=== PATIENT | female | born 1995 | race Caucasian/White ===

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

== ENCOUNTER 2017-03-11 16:53 | Emergency (ER) | payer MEDICAID ==
[~2017-03-11] VITALS: Ht 154.9 cm; Wt 54.0 kg
[~2017-03-11 16:53] MED LIST changes: -FOLI5CAP PO; -MACR100C2 PO
[2017-03-11 16:54] VITALS: BP 124/72; PULSE 100; RESP 18; TEMP 98.3; O2SAT 100
[2017-03-11] MEDS ORDERED: NAPR500T PO (18:24)
--- NOTE | 2017-03-11 18:27 | PD ---
HPI Chief Complaint: Pain: Acute or Chronic Time Seen by Provider: 18:25 Travel History International Travel<30 days: No Contact w/Intl Traveler<30days: No Traveled to known affect area: No History of Present Illness HPI 21-year-old female presents to the emergency department for evaluation of right chest wall pain underneath her right breast. Patient states this is been intermittent for the past week. Denies any injury or trauma. States the pain is brought on by movement and palpation. Denies any lightheadedness, dizziness , shortness of breath, difficulty breathing, cough or cold symptoms, nausea, diaphoresis. Denies , last menstrual period 3 weeks ago. States that she thought she felt a lump in her right breast but is unsure. Denies any erythema, warmth, nipple discharge or drainage. Denies any family history of breast cancer. No other complaints. PFSH Past Medical History Asthma: No Blood Disorders: No Anxiety: No Depression: No Heart Rhythm Problems: No Cancer: No Cardiovascular Problems: No High Cholesterol: No Chemotherapy: No Chest Pain: No Congestive Heart Failure: No COPD: No Diabetes: No Diminished Hearing: No Endocrine: No Genitourinary: No Hypertension: No Musculoskeletal: No Neurologic: No Psychiatric: No Reproductive: No Respiratory: No Immunizations Current: No Radiation Therapy: No Seizures: Yes (first seizure 05/04/16) Sleep Apnea: No Thyroid Disease: No ?: Unknown : 1 : 1 Past Surgical History Other Surgery: No Social History Alcohol Use: No Tobacco Use: No Substance Use: Yes (marijuana, occasionally) Allergies-Medications (Allergen,Severity, Reaction): Coded Allergies: No Known Allergies (Unverified , 03/11/17) Reported Meds & Prescriptions Reported Meds & Active Scripts Active Naproxen 500 Mg Tab 500 Mg PO BID 7 Days Keppra (Levetiracetam) 500 Mg Tab 500 Mg PO BID Review of Systems Except as stated in HPI: all other systems reviewed are Neg Physical Exam Narrative GENERAL: Well-nourished and well-developed pleasant patient in no acute distress who is nontoxic appearing. SKIN: Warm and dry. HEAD: Normocephalic and atraumatic. EYES: No injection, drainage, or hyphema noted. PERRLA. EOMI. ENT: No nasal drainage noted. Oropharynx is clear. NECK: Supple and the trachea is midline. CARDIOVASCULAR: Regular rate and rhythm. RESPIRATORY: Breath sounds are equal bilaterally with no accessory muscle use, wheezing, rhonchi, or crackles. CHEST: Tenderness to palpation of lateral right chest wall and underneath right breast. No breast tenderness to palpation. No lumps, masses, nipple discharge. GASTROINTESTINAL: Abdomen is soft, non-tender, and nondistended. MUSCULOSKELETAL: No obvious deformities, swelling, cyanosis, or ecchymosis is present throughout the upper and lower extremities. Patient has full range of motion without any signs of neurovascular compromise. NEUROLOGICAL: Awake, alert, and oriented. Normal speech and gait. Cranial nerves are grossly intact. Data Data Last Documented VS Vital Signs Date Time Temp Pulse Resp B/P Pulse Ox O2 Delivery O2 Flow Rate FiO2 03/11/17 16:54 98.3 100 18 124/72 100 Room Air MDM Medical Decision Making Medical Screen Exam Complete: Yes Emergency Medical Condition: Yes Differential Diagnosis Chest wall pain versus muscle strain versus fibrocystic breast tissue versus pleuritic pain Narrative Course 21-year-old female presents to the emergency department for evaluation of right chest wall pain intermittently for one week brought on with movement. Patient is afebrile, vital signs are stable. This is musculoskeletal chest wall pain. There is really no involvement of the breast tissue, all of her pain is to the chest wall below the breast and lateral to the breast. This is a young healthy 21-year-old with no medical conditions and no family history of sudden cardiac . I don't see any indication for imaging or further testing. She'll be prescribed NSAIDs for her symptoms. Patient verbalizes understanding and is in agreement with treatment plan. I discussed the case with my attending physician Dr. Parrish who is aware of the patients history, physical examination findings, and treatment plan. Diagnosis Primary Impression: Right-sided chest wall pain Referrals: Primary Care Physician Patient Instructions: Chest Wall Pain (ED), General Instructions Additional Instructions: Take medication as prescribed with food and a full glass of water. Follow-up with your Primary Care Physician. Return to the ED for any acute worsening of symptoms. Med/Other Pt SpecificInfo: Prescription(s) given Scripts Naproxen 500 Mg Rys244 Mg PO BID 7 Days Ref 0 Prov:Sylvain Parrish MD 03/11/17 Disposition: 01 DISCHARGE HOME Condition: Stable Shweta Haywood Mar 11, 2017 18:27
== END 2017-03-11 19:11 | disposition home or self-care (01) ==
LOC: NEPD 16:53
DX: R07.89 Other chest pain (principal); Z86.69 Personal history of other diseases of the nervous system and sense organs
CPT/HCPCS: 99283

== ENCOUNTER 2017-04-19 13:00 | Emergency (ER) | payer MEDICAID ==
[~2017-04-19] VITALS: Ht 154.9 cm; Wt 55.0 kg
[~2017-04-19 13:00] MED LIST changes: +NAPR500T PO
[2017-04-19 13:06] VITALS: PULSE 60; RESP 18; TEMP 97.9; O2SAT 98
[2017-04-19] MEDS ORDERED: SODIUM CHLOR 0.9% 1000 ML INJ 1,000 ML IV SCH (13:06)
[2017-04-19 13:13] VITALS: BP 130/68; PULSE 70; RESP 18; TEMP 97.9; O2SAT 98
[2017-04-19] MEDS ORDERED: ACETAMINOPHEN 325 MG TAB PO ONE (13:15)
[2017-04-19] MEDS ORDERED: LORazepam 2 MG/ML VIAL IV PUSH ONE (13:15)
[2017-04-19] MEDS ORDERED: ONDANSETRON HCL 4 MG/2 ML VIAL ONE (13:42)
[2017-04-19] MEDS ORDERED: ONDANSETRON HCL 4 MG/2 ML VIAL IV PUSH ONE (13:45)
[2017-04-19 13:49] LABS: AUTOMATED NEUTROPHIL # 4.3 TH/MM3 (1.8-7.7); BASOPHIL % 0.5 % (0.0-2.0); EOSINOPHIL % 0.5 % (0.0-4.0); HEMATOCRIT 34.1 % (35.0-46.0); HEMO FLAGS DIFF FINAL; LYMPH % 17.4 % (9.0-44.0); MEAN CELL VOLUME 69.6 FL (80.0-100.0); MEAN CORPUSCULAR HEMOGLOBIN 22.2 PG (27.0-34.0); MEAN CORPUSCULAR HGB CONC 31.9 % (32.0-36.0); MONO % 4.9 % (0.0-8.0); NEUT % 76.7 % (16.0-70.0); PLATELET COUNT 272 TH/MM3 (150-450); RED CELL DISTRIBUTION WIDTH 17.9 % (11.6-17.2); WHITE BLOOD COUNT 5.6 TH/MM3 (4.0-11.0)
[2017-04-19 14:06] LABS: BICARBONATE 23.7 MEQ/L (21.0-32.0); MAGNESIUM 2.3 MG/DL (1.5-2.5); POTASSIUM 4.5 MEQ/L (3.5-5.1)
--- NOTE | 2017-04-19 14:16 | RADRPT ---
EXAM DATE/TIME: 04/19/2017 14:00 [facility] COMPARISON: CT BRAIN W/O CONTRAST, May 04, 2016, 8:47. INDICATIONS : Cephalgia. RADIATION DOSE: 32.34 CTDIvol (mGy) MEDICAL HISTORY : Seizures. SURGICAL HISTORY : None. ENCOUNTER: Initial ACUITY: 1 day PAIN SCALE: 9/10 LOCATION: Bilateral cranial TECHNIQUE: Multiple contiguous axial images were obtained of the head. Using automated exposure control and adj ustment of the mA and/or kV according to patient size, radiation dose was kept as low as reasonably a chievable to obtain optimal diagnostic quality images. FINDINGS: CEREBRUM: The ventricles are normal. No evidence of midline shift, mass lesion, hemorrhage or acute infarction . No extra-axial fluid collections are seen. POSTERIOR FOSSA: The cerebellum and brainstem are intact. The 4th ventricle is midline. The cerebellopontine angle i s unremarkable. EXTRACRANIAL: Visualized sinuses are clear. SKULL: The calvaria is intact. No evidence of skull fracture. CONCLUSION: Negative noncontrast head CT. Kev De Leon MD on April 19, 2017 at 14:13 Board Certified Radiologist. This report was verified electronically.
--- NOTE | 2017-04-19 14:17 | PD ---
HPI Chief Complaint: Seizure Time Seen by Provider: 14:14 Travel History International Travel<30 days: No Contact w/Intl Traveler<30days: No Traveled to known affect area: No History of Present Illness HPI 21-year-old female that presents to the ED for evaluation of witnessed seizure. Patient apparently was on her way to work and she had a seizure where she lost consciousness on a car. Patient did not hit her head. Seizure lasted about a minute and she came back to with both lasted about 10 minutes of confusion. After that patient went back to normal except complaining of a severe headache. The patient her headache is 8 out of 10. She also has vomited once today. She denies any allergies to medication. No chest pain. No falls. No urinary or bowel movement issues. No fevers chills or sweats. No blurry vision or double vision. Per patient the headache is severe and throbbing. She has not taken anything for this. Patient does have a known history of seizures diagnosed in this hospital just 2016. Patient was put on Keppra but per patient she's been noncompliant because the Keppra makes her feel "like she is having postictal episodes ". She has no neurologist. She has no follow-up. No other medical problems reported. Denies any drugs or alcohol. PFSH Past Medical History Anemia: Yes Asthma: No Blood Disorders: No Anxiety: No Depression: No Heart Rhythm Problems: No Cancer: No Cardiovascular Problems: No High Cholesterol: No Chemotherapy: No Chest Pain: No Congestive Heart Failure: No COPD: No Diabetes: No Diminished Hearing: No Endocrine: No Genitourinary: No Hypertension: No Musculoskeletal: No Neurologic: No Psychiatric: No Reproductive: No Respiratory: No Immunizations Current: No Radiation Therapy: No Seizures: Yes Sleep Apnea: No Thyroid Disease: No Tetanus Vaccination: < 5 Years Influenza Vaccination: Yes ?: Not LMP: 04/13/17 : 1 : 1 Past Surgical History Surgical History: No Previous Surgery Other Surgery: No Social History Alcohol Use: No (OCCASIONALLY ) Tobacco Use: No Substance Use: Yes (marijuana OFTEN ) Allergies-Medications (Allergen,Severity, Reaction): Coded Allergies: No Known Allergies (Unverified , 03/11/17) Reported Meds & Prescriptions Reported Meds & Active Scripts Active Keppra (Levetiracetam) 250 Mg Tab 500 Mg PO BID 30 Days Naproxen 500 Mg Tab 500 Mg PO BID 7 Days Keppra (Levetiracetam) 500 Mg Tab 500 Mg PO BID Review of Systems Except as stated in HPI: all other systems reviewed are Neg Physical Exam Narrative GENERAL: SKIN: Warm and dry. HEAD: Atraumatic. Normocephalic. EYES: Pupils equal and round 4 mm reactive to light and accommodation. No scleral icterus. No injection or drainage. ENT: No nasal bleeding or discharge. Mucous membranes pink and moist. Tongue is midline. No uvula deviation. NECK: Trachea midline. No JVD. CARDIOVASCULAR: Regular rate and rhythm. No murmurs, S3, S4. RESPIRATORY: No accessory muscle use. Clear to auscultation. Breath sounds equal bilaterally. GASTROINTESTINAL: Abdomen soft, non-tender, nondistended. Hepatic and splenic margins not palpable. MUSCULOSKELETAL: Extremities without clubbing, cyanosis, or edema. No obvious deformities. Full range of motion of the upper and lower extremities bilaterally. 2+ pulses bilaterally. NEUROLOGICAL: Awake and alert. No obvious cranial nerve deficits. Motor grossly within normal limits. Five out of 5 muscle strength in the arms and legs. Normal speech. PSYCHIATRIC: Appropriate mood and affect; insight and judgment normal. Data Data Last Documented VS Vital Signs Date Time Temp Pulse Resp B/P Pulse Ox O2 Delivery O2 Flow Rate FiO2 04/19/17 14:36 18 04/19/17 13:13 97.9 70 130/68 98 Room Air Orders Complete Blood Count With Diff (04/19/17 13:06) Basic Metabolic Panel (Bmp) (04/19/17 13:06) Urinalysis - C+S If Indicated (04/19/17 13:06) Magnesium (Mg) (04/19/17 13:06) Thyroid Stimulating Hormone (04/19/17 13:06) Ct Brain W/O Iv Contrast(Rout) (04/19/17 13:06) Iv Access Insert/Monitor (04/19/17 13:06) Ecg Monitoring (04/19/17 13:06) Oximetry (04/19/17 13:06) Acetaminophen (Tylenol) (04/19/17 13:15) Lorazepam Inj (Ativan Inj) (04/19/17 13:15) Sodium Chlor 0.9% 1000 Ml Inj (Ns 1000 M (04/19/17 13:06) Ondansetron Inj (Zofran Inj) (04/19/17 13:45) Ondansetron Inj (Zofran Inj) (04/19/17 13:42) Ed Urine Pregnancytest Poc (04/19/17 14:27) Levetiracetam Inj (Keppra Inj) (04/19/17 15:15) Mandatory Outpatient Referral (04/19/17 15:13) Labs Laboratory Tests Test 04/19/17 13:20 White Blood Count 5.6 TH/MM3 Red Blood Count 4.90 MIL/MM3 Hemoglobin 10.9 GM/DL Hematocrit 34.1 % Mean Corpuscular Volume 69.6 FL Mean Corpuscular Hemoglobin 22.2 PG Mean Corpuscular Hemoglobin 31.9 % Concent Red Cell Distribution Width 17.9 % Platelet Count 272 TH/MM3 Mean Platelet Volume 8.6 FL Neutrophils (%) (Auto) 76.7 % Lymphocytes (%) (Auto) 17.4 % Monocytes (%) (Auto) 4.9 % Eosinophils (%) (Auto) 0.5 % Basophils (%) (Auto) 0.5 % Neutrophils # (Auto) 4.3 TH/MM3 Lymphocytes # (Auto) 1.0 TH/MM3 Monocytes # (Auto) 0.3 TH/MM3 Eosinophils # (Auto) 0.0 TH/MM3 Basophils # (Auto) 0.0 TH/MM3 CBC Comment DIFF FINAL Differential Comment Sodium Level 141 MEQ/L Potassium Level 4.5 MEQ/L Chloride Level 107 MEQ/L Carbon Dioxide Level 23.7 MEQ/L Anion Gap 10 MEQ/L Blood Urea Nitrogen 11 MG/DL Creatinine 0.79 MG/DL Estimat Glomerular Filtration 94 ML/MIN Rate Random Glucose 87 MG/DL Calcium Level 9.8 MG/DL Magnesium Level 2.3 MG/DL Thyroid Stimulating Hormone 1.660 uIU/ML 3rd Gen [facility] Medical Decision Making Medical Screen Exam Complete: Yes Emergency Medical Condition: Yes Medical Record Reviewed: Yes Interpretation(s) Last Impressions Head CT 04/19/17 1306 Signed Impressions: Service Date/Time: Wednesday, April 19, 2017 14:00 - CONCLUSION: Negative noncontrast head CT. Kev De Leon MD CBC & BMP Diagram 04/19/17 13:20 TSH WNL Differential Diagnosis Seizure versus chronic seizures versus noncompliance versus headache versus cephalgia versus ICH Narrative Course 21-year-old female that presents to the ED for evaluation of seizure. Patient was properly examined and was found to have signs and symptoms consistent appears to be a seizure. Patient appears to be back to normal. She does complain of a severe headache. Denies any head injury. Labs and imaging ordered. Patient was given IV fluids and antiemetics as well as Ativan. Labs and imaging showed no sign of acute disease. Patient was reassured. The family the patient's having seizures secondary to noncompliance. This time patient will be placed back on Keppra. Patient was given a loading dose here. Patient will be sent home prescription for this. She was instructed that she needs to take this medication as otherwise she will continue to have seizures. She understands that she needs to follow with her neurologist. She was given information for neurologist on-call. See ED worsening symptoms. Follow with PCP. Diagnosis Primary Impression: Seizure Referrals: Oscar Smalls MD Patient Instructions: General Instructions, Narcotic given in the ED Additional Instructions: Take your seizure medication as prescribed. Follow with neurologist. See ED worsening symptoms. Med/Other Pt SpecificInfo: Prescription(s) given Scripts Levetiracetam (Keppra)250 Mg Nas245 Mg PO BID 30 Days Ref 1 Prov:Dar Nogueira MD 04/19/17 Disposition: 01 DISCHARGE HOME Condition: Stable Ji Albrecht April 19, 2017 14:17
[2017-04-19] MEDS ORDERED: LEVE250 PO (15:12)
[2017-04-19] MEDS ORDERED: levETIRAcetam INJ 500 MG in SODIUM CHLORIDE 0.9% INJ 100 ML IV ONE (15:15)
[2017-04-19 16:19] VITALS: BP 121/61; PULSE 74; RESP 18; TEMP 97.9; O2SAT 98
== END 2017-04-19 16:20 | disposition home or self-care (01) ==
LOC: NEPE 13:00
DX: R56.9 Unspecified convulsions (principal); R51 Headache; D64.9 Anemia, unspecified; F12.90 Cannabis use, unspecified, uncomplicated; Z91.14 Patient's other noncompliance with medication regimen
CPT/HCPCS: 70450; 80048; 83735; 84443; 85025; 96361; 96374; 96375; 99285; J1953; J2060; J2405; J7030

== ENCOUNTER 2017-05-26 09:19 | Emergency (ER) | payer MEDICAID ==
[~2017-05-26] VITALS: Ht 165.1 cm; Wt 55.5 kg
[~2017-05-26 09:19] MED LIST changes: +LEVE250 PO
[2017-05-26 09:20] VITALS: BP 146/81; PULSE 67; RESP 22; TEMP 97.7; O2SAT 98
[2017-05-26 09:44] VITALS: O2SAT 96
[2017-05-26] MEDS ORDERED: SODIUM CHLORIDE 0.9% FLUSH 10 ML FLUSH IVF PRN (09:45)
[2017-05-26] MEDS ORDERED: ONDANSETRON HCL 4 MG/2 ML VIAL IV PUSH ONE (09:45)
[2017-05-26] MEDS ORDERED: MORPHINE SULFATE 4 MG/ML INJ IV PUSH ONE (09:45)
[2017-05-26] MEDS ORDERED: SODIUM CHLOR 0.9% 1000 ML INJ 1,000 ML IV ONE (09:45)
--- NOTE | 2017-05-26 09:45 | PD ---
HPI Chief Complaint: Seizure Time Seen by Provider: 09:29 Travel History International Travel<30 days: No Contact w/Intl Traveler<30days: No Traveled to known affect area: No History of Present Illness HPI The patient is a 21-year-old female who presents to the emergency department for seizure. The patient notes she has had seizures for the last 2 years, was prescribed Her and takes 500 mg twice a day. The patient states her last seizure prior to today was 3 weeks ago. The patient states she was sleeping when she had a seizure at 4 AM, had another seizure at 6:30 AM and then developed a headache. The headache is located in the frontal aspect of the head behind the eyes, associated mild photophobia, nausea, and she does note she bit the right side of her tongue. She denies any urinary incontinence. She does complain of a moderate to severe headache, denies any trauma during her seizure, the seizure was witnessed by a family member. She denies any focal deficits. The patient has not followed up with neurology in the last 2 years. The patient denies any fever, chills, or sweats. PFSH Past Medical History Anemia: Yes Asthma: No Blood Disorders: No Anxiety: No Depression: No Heart Rhythm Problems: No Cancer: No Cardiovascular Problems: No High Cholesterol: No Chemotherapy: No Chest Pain: No Congestive Heart Failure: No COPD: No Diabetes: No Diminished Hearing: No Endocrine: No Genitourinary: No Hypertension: No Musculoskeletal: No Neurologic: No Psychiatric: No Reproductive: No Respiratory: No Immunizations Current: No Radiation Therapy: No Seizures: Yes Sleep Apnea: No Thyroid Disease: No : 1 : 1 Past Surgical History Other Surgery: No Social History Alcohol Use: No (OCCASIONALLY ) Tobacco Use: No Substance Use: Yes (marijuana OFTEN ) Allergies-Medications (Allergen,Severity, Reaction): Coded Allergies: No Known Allergies (Unverified , 05/26/17) Reported Meds & Prescriptions Reported Meds & Active Scripts Active Keppra (Levetiracetam) 250 Mg Tab 500 Mg PO BID 30 Days Naproxen 500 Mg Tab 500 Mg PO BID 7 Days Keppra (Levetiracetam) 500 Mg Tab 500 Mg PO BID Review of Systems Except as stated in HPI: all other systems reviewed are Neg General / Constitutional: No: Fever Eyes: Positive: Photophobia, No: Blurred Vision HENT: Positive: Headaches, No: Neck Pain Cardiovascular: No: Chest Pain or Discomfort Respiratory: No: Shortness of Breath Gastrointestinal: Positive: Nausea, No: Vomiting, Abdominal Pain Genitourinary: No: Incontinence Musculoskeletal: No: Weakness Neurologic: Positive: Headache, Seizures, No: Change in Mentation, Paresthesia , Sensory Disturbance Physical Exam Narrative GENERAL: Awake, alert, 21-year-old female who appears her stated age and is in no acute respiratory distress. SKIN: Focused skin assessment warm/dry. HEAD: Atraumatic. Normocephalic. EYES: Pupils equal and round. Pupils are 4 mm bilateral and reactive. EOMs are intact. Patient is a was see fingers at a distance of 2 feet without difficulty. ENT: No nasal bleeding or discharge. Mucous membranes pink and moist. Mild trauma to the right lateral tongue. NECK: Trachea midline. No JVD. CARDIOVASCULAR: Regular rate and rhythm. No murmur appreciated. RESPIRATORY: No accessory muscle use. Clear to auscultation. Breath sounds equal bilaterally. No Abdomen: Soft, nontender, no rebound tenderness.. MUSCULOSKELETAL: No obvious deformities. No clubbing. No cyanosis. No edema. NEUROLOGICAL: Awake and alert. No obvious cranial nerve deficits. Motor grossly within normal limits. Normal speech. Nonfocal. Oriented 4. PSYCHIATRIC: Appropriate mood and affect; insight and judgment normal. Data Data Last Documented VS Vital Signs Date Time Temp Pulse Resp B/P Pulse Ox O2 Delivery O2 Flow Rate FiO2 05/26/17 09:44 96 Room Air 05/26/17 09:20 97.7 67 22 146/81 Orders Electrocardiogram (05/26/17 ) Complete Blood Count With Diff (05/26/17 09:34) Ct Brain W/O Iv Contrast(Rout) (05/26/17 ) Blood Glucose (05/26/17 09:34) Ecg Monitoring (05/26/17 09:34) Iv Access Insert/Monitor (05/26/17 09:34) Oximetry (05/26/17 09:34) Comprehensive Metabolic Panel (05/26/17 09:34) Sodium Chloride 0.9% Flush (Ns Flush) (05/26/17 09:45) Urinalysis - C+S If Indicated (05/26/17 09:34) Ed Urine Pregnancytest Poc (05/26/17 09:34) Sodium Chlor 0.9% 1000 Ml Inj (Ns 1000 M (05/26/17 09:45) Morphine Inj (Morphine Inj) (05/26/17 09:45) Ondansetron Inj (Zofran Inj) (05/26/17 09:45) Labs Laboratory Tests Test 05/26/17 09:44 White Blood Count 11.2 TH/MM3 Red Blood Count 5.13 MIL/MM3 Hemoglobin 10.7 GM/DL Hematocrit 35.8 % Mean Corpuscular Volume 69.9 FL Mean Corpuscular Hemoglobin 21.0 PG Mean Corpuscular Hemoglobin 30.0 % Concent Red Cell Distribution Width 17.1 % Platelet Count 252 TH/MM3 Mean Platelet Volume 8.7 FL Neutrophils (%) (Auto) 89.2 % Lymphocytes (%) (Auto) 7.3 % Monocytes (%) (Auto) 2.9 % Eosinophils (%) (Auto) 0.1 % Basophils (%) (Auto) 0.5 % Neutrophils # (Auto) 10.0 TH/MM3 Lymphocytes # (Auto) 0.8 TH/MM3 Monocytes # (Auto) 0.3 TH/MM3 Eosinophils # (Auto) 0.0 TH/MM3 Basophils # (Auto) 0.1 TH/MM3 CBC Comment DIFF FINAL Differential Comment Sodium Level 137 MEQ/L Potassium Level 4.1 MEQ/L Chloride Level 104 MEQ/L Carbon Dioxide Level 23.8 MEQ/L Anion Gap 9 MEQ/L Blood Urea Nitrogen 7 MG/DL Creatinine 0.77 MG/DL Estimat Glomerular Filtration 97 ML/MIN Rate Random Glucose 106 MG/DL Calcium Level 9.4 MG/DL Total Bilirubin 0.4 MG/DL Aspartate Amino Transf 30 U/L (AST/SGOT) Alanine Aminotransferase 24 U/L (ALT/SGPT) Alkaline Phosphatase 89 U/L Total Protein 8.0 GM/DL Albumin 4.2 GM/DL [facility] Medical Decision Making Medical Screen Exam Complete: Yes Emergency Medical Condition: Yes Medical Record Reviewed: Yes Interpretation(s) EKG reveals sinus rhythm with sinus arrhythmia. No significant ST elevations or depressions noted. Last Impressions Head CT 05/26/17 0000 Signed Impressions: Service Date/Time: Friday, May 26, 2017 10:14 - CONCLUSION: Normal examination for a patient of this age. No significant change has occurred. Praneeth Purcell MD Laboratory Tests Test 05/26/17 09:44 White Blood Count 11.2 TH/MM3 Red Blood Count 5.13 MIL/MM3 Hemoglobin 10.7 GM/DL Hematocrit 35.8 % Mean Corpuscular Volume 69.9 FL Mean Corpuscular Hemoglobin 21.0 PG Mean Corpuscular Hemoglobin 30.0 % Concent Red Cell Distribution Width 17.1 % Platelet Count 252 TH/MM3 Mean Platelet Volume 8.7 FL Neutrophils (%) (Auto) 89.2 % Lymphocytes (%) (Auto) 7.3 % Monocytes (%) (Auto) 2.9 % Eosinophils (%) (Auto) 0.1 % Basophils (%) (Auto) 0.5 % Neutrophils # (Auto) 10.0 TH/MM3 Lymphocytes # (Auto) 0.8 TH/MM3 Monocytes # (Auto) 0.3 TH/MM3 Eosinophils # (Auto) 0.0 TH/MM3 Basophils # (Auto) 0.1 TH/MM3 CBC Comment DIFF FINAL Differential Comment Sodium Level 137 MEQ/L Potassium Level 4.1 MEQ/L Chloride Level 104 MEQ/L Carbon Dioxide Level 23.8 MEQ/L Anion Gap 9 MEQ/L Blood Urea Nitrogen 7 MG/DL Creatinine 0.77 MG/DL Estimat Glomerular Filtration 97 ML/MIN Rate Random Glucose 106 MG/DL Calcium Level 9.4 MG/DL Total Bilirubin 0.4 MG/DL Aspartate Amino Transf 30 U/L (AST/SGOT) Alanine Aminotransferase 24 U/L (ALT/SGPT) Alkaline Phosphatase 89 U/L Total Protein 8.0 GM/DL Albumin 4.2 GM/DL Differential Diagnosis Differential diagnosis includes subtherapeutic Keppra level, breakthrough seizure, hyponatremia, hypocalcemia, subarachnoid hemorrhage, intracranial hemorrhage, seizure disorder. Narrative Course IV was established, labs are drawn and sent, and the patient was placed on cardiac telemetry monitoring and continuous pulse oximetry monitoring. EKG was ordered and interpreted. Stat CT the brain was obtained. 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 I reviewed the patient's EMR, she was hospitalized in 2016 for new onset seizure, had an EEG that was read by Dr. Smalls and an MRI the brain that was performed. Bedside UA test was negative. CT the brain is unremarkable. Laboratory evaluation is unremarkable. The patient was reevaluated at 10:45 AM, her headache had improved, was still at a 3/10. Therefore, the patient was administered Toradol. Patient was administer A 500 mg intravenously. The patient states previously she was elevated A 750 g twice a day, however, and had to be reduced because it was too sedating. Therefore, patient is advised to continue the Keppra 500 twice a day and follow-up with neurology. Diagnosis Primary Impression: Seizure Additional Impression: Cephalgia Qualified Code: R51 - Acute nonintractable headache, unspecified headache type Patient Instructions: General Instructions Additional Instructions: Medications as directed. Follow-up with your primary physician. Return if symptoms worsen or progress. Please provide a patient a copy of her labs and CT results at discharge. Med/Other Pt SpecificInfo: No Change to Meds Disposition: 01 DISCHARGE HOME Condition: Stable Jacinto Holt MD May 26, 2017 09:45
[2017-05-26 10:18] LABS: BASOPHIL # 0.1 TH/MM3 (0-0.2); BASOPHIL % 0.5 % (0.0-2.0); EOSINOPHIL % 0.1 % (0.0-4.0); HEMATOCRIT 35.8 % (35.0-46.0); HEMO FLAGS DIFF FINAL; LYMPH % 7.3 % (9.0-44.0); LYMPHOCYTE # 0.8 TH/MM3 (1.0-4.8); MEAN CELL VOLUME 69.9 FL (80.0-100.0); MONO % 2.9 % (0.0-8.0); NEUT % 89.2 % (16.0-70.0); PLATELET COUNT 252 TH/MM3 (150-450); RED BLOOD COUNT 5.13 MIL/MM3 (4.00-5.30); RED CELL DISTRIBUTION WIDTH 17.1 % (11.6-17.2); WHITE BLOOD COUNT 11.2 TH/MM3 (4.0-11.0)
--- NOTE | 2017-05-26 10:34 | RADRPT ---
EXAM DATE/TIME: 05/26/2017 10:14 [facility] COMPARISON: CT BRAIN W/O CONTRAST, April 19, 2017, 14:00. INDICATIONS : Possible seizure today. RADIATION DOSE: 39.54 CTDIvol (mGy) MEDICAL HISTORY : Seizures. SURGICAL HISTORY : None. ENCOUNTER: Initial ACUITY: 1 day PAIN SCALE: 5/10 LOCATION: Bilateral head TECHNIQUE: Multiple contiguous axial images were obtained of the head. Using automated exposure control and adj ustment of the mA and/or kV according to patient size, radiation dose was kept as low as reasonably a chievable to obtain optimal diagnostic quality images. DICOM format image data is available electro nically for review and comparison. FINDINGS: CEREBRUM: The ventricles are normal for age. No evidence of midline shift, mass lesion, hemorrhage or acute in farction. No extra-axial fluid collections are seen. POSTERIOR FOSSA: The cerebellum and brainstem are intact. The 4th ventricle is midline. The cerebellopontine angle i s unremarkable. EXTRACRANIAL: The visualized portion of the orbits is intact. SKULL: The calvaria is intact. No evidence of skull fracture. CONCLUSION: Normal examination for a patient of this age. No significant change has occurred. Praneeth Purcell MD on May 26, 2017 at 10:28 Board Certified Radiologist. This report was verified electronically.
[2017-05-26 10:35] LABS: ALKALINE PHOSPHATASE 89 U/L (45-117); TOTAL BILIRUBIN ADULT 0.4 MG/DL (0.2-1.0)
[2017-05-26 10:36] LABS: ALT (GPT) 24 U/L (9-42); ANION GAP 9 MEQ/L (5-15); AST (GOT) 30 U/L (16-38); BICARBONATE 23.8 MEQ/L (21.0-32.0); BLOOD UREA NITROGEN 7 MG/DL (7-18); CHLORIDE 104 MEQ/L (98-107); GLOMERULAR FILTRATION RATE 97 ML/MIN (>89); SODIUM (NA) 137 MEQ/L (136-145)
[2017-05-26 10:37] LABS: POTASSIUM 4.1 MEQ/L (3.5-5.1)
[2017-05-26] MEDS ORDERED: KETOROLAC TROMETHAMINE 30 MG/ML (IVP) VIAL IV PUSH ONE (11:00)
[2017-05-26] MEDS ORDERED: levETIRAcetam INJ 500 MG in SODIUM CHLORIDE 0.9% INJ 100 ML IV ONE (11:00)
[2017-05-26 11:23] LABS: BACTERIA, URINE RARE /hpf; BLOOD, URINE NEG (NEG); COMMENT (UR) CULT NOT INDICATED; CULTURE IF INDICATED CULT NOT INDICATED; GLUCOSE,URINE NEG (NEG); KETONE, URINE TRACE mg/dL (NEG); MUCUS URINE FEW /lpf (OCC); NITRITE,URINE NEG (NEG); PH, URINE 7.5 (5.0-8.5); SQUAMOUS EPITHELIAL CELL URINE 13 /hpf (0-5); TRANSITIONAL EPI CELLS, URINE 1 /hpf; URINE COLOR LIGHT-YELLOW (YELLW/STRAW)
[2017-05-26 12:29] VITALS: BP 110/66
--- NOTE | 2017-05-26 15:18 | EKG ---
Date Performed: 05/26/2017 Time Performed: 21:55:45 PTAGE: 21 years EKG: Sinus rhythm WITH MARKED SINUS ARRHYTHMIA BORDERLINE ECG PREVIOUS TRACING : 05/04/2016 07/22/18 DOCTOR: Junior Coe Interpretating Date/Time 05/26/2017 15:17:24
== END 2017-05-26 12:30 | disposition home or self-care (01) ==
LOC: NEPE 09:19
DX: R51 Headache (principal); D64.9 Anemia, unspecified; F12.10 Cannabis abuse, uncomplicated
CPT/HCPCS: 70450; 80053; 81001; 84703; 85025; 93005; 96361; 96365; 96375; 99285; J1885; J1953; J2270; J2405; J7030

== ENCOUNTER 2017-06-24 16:01 | Emergency (ER) | payer MEDICAID ==
[2017-06-24 16:10] VITALS: BP 134/87; PULSE 18; PULSE 78; RESP 18; TEMP 98.1; O2SAT 100
[2017-06-24] MEDS ORDERED: LIDOCAINE 1%/EPINEPHrine 1:100,000 SOLN 20 ML VIAL INFIL ONE (16:45)
[2017-06-24] MEDS ORDERED: CEPH500C PO (17:04)
--- NOTE | 2017-06-24 17:12 | PD ---
HPI Chief Complaint: Laceration/Skin Injury Time Seen by Provider: 16:20 Travel History International Travel<30 days: No Contact w/Intl Traveler<30days: No Traveled to known affect area: No History of Present Illness HPI 21-year-old M[place] female presents the emergency department with laceration to the lateral left wrist. Patient states she was cooking, when her cat was getting onto the counter she went to move the cat and the cat knocked a sharp knife which he tried to catch causing a laceration to the volar surface of the left wrist. Patient called the anal she brought her in and applied a pressure dressing with control the bleeding. She denies any numbness, tingling , or loss of function in the left hand. She had her last tetanus 4 years ago. She does have a history of seizure disorder for which she takes Keppra. She has minimal pain. She has no known drug allergies. PFSH Past Medical History Anemia: Yes Asthma: No Blood Disorders: No Anxiety: No Depression: No Heart Rhythm Problems: No Cancer: No Cardiovascular Problems: No High Cholesterol: No Chemotherapy: No Chest Pain: No Congestive Heart Failure: No COPD: No Diabetes: No Diminished Hearing: No Endocrine: No Genitourinary: No Hypertension: No Musculoskeletal: No Neurologic: No Psychiatric: No Reproductive: No Respiratory: No Immunizations Current: No Radiation Therapy: No Seizures: Yes Sleep Apnea: No Thyroid Disease: No : 1 : 1 Past Surgical History Other Surgery: No Social History Alcohol Use: Yes (OCCASIONALLY ) Tobacco Use: No Substance Use: Yes (marijuana OFTEN ) Allergies-Medications (Allergen,Severity, Reaction): Coded Allergies: No Known Allergies (Unverified , 05/26/17) Reported Meds & Prescriptions Reported Meds & Active Scripts Active Keppra (Levetiracetam) 500 Mg Tab 500 Mg PO BID Review of Systems Except as stated in HPI: all other systems reviewed are Neg General / Constitutional: No: Fever Eyes: No: Visual changes HENT: No: Headaches Cardiovascular: No: Chest Pain or Discomfort Respiratory: No: Shortness of Breath Gastrointestinal: No: Abdominal Pain Genitourinary: No: Dysuria Musculoskeletal: No: Pain Skin: No Rash Neurologic: No: Weakness Psychiatric: No: Depression Endocrine: No: Polydipsia Hematologic/Lymphatic: No: Easy Bruising Physical Exam Narrative GENERAL: Patient appears in no acute distress. SKIN: Warm and dry. Normal color. Normal turgor. Patient has a 3 cm linear laceration across the volar surface of the left wrist. It is full-thickness but does not involve the tendons, ligaments, nerves, or blood vessels of the deep tissue. HEAD: Atraumatic. Normocephalic. EYES: Pupils equal and round. No scleral icterus. No injection or drainage. ENT: No nasal bleeding or discharge. Mucous membranes pink and moist. Pharynx is clear. Airway is patent. NECK: Trachea midline. Supple. CARDIOVASCULAR: Regular rate and rhythm. RESPIRATORY: No accessory muscle use. Clear to auscultation. Breath sounds equal bilaterally. MUSCULOSKELETAL: Extremities without clubbing, cyanosis, or edema. No obvious deformities. Full strength and range of motion and sensation is noted. Normal child health associate strength of the left hand. Neurovascular exam is unremarkable. NEUROLOGICAL: Awake and alert. No obvious cranial nerve deficits. Motor grossly within normal limits. Five out of 5 muscle strength in the arms and legs. Normal speech. PSYCHIATRIC: Appropriate mood and affect; insight and judgment normal. Data Data Last Documented VS Vital Signs Date Time Temp Pulse Resp B/P Pulse Ox O2 Delivery O2 Flow Rate FiO2 06/24/17 16:10 98.1 78 18 134/87 100 Orders Lidocai-Epi 1%-1:100,000 Inj (Xylocaine- (06/24/17 16:45) MDM Medical Decision Making Medical Screen Exam Complete: Yes Emergency Medical Condition: Yes Differential Diagnosis Accidental laceration. Left wrist laceration. Need for sutures. Narrative Course Laceration is repaired. See procedure note. Dressing should remain in place for 24 hours. Wound care as directed after that. Sutures should remain in place for 7 days. Patient is given Keflex 500 mg 3 times a day 7 days as well. Work note is given. Patient is to follow-up in 7 days for a wound check and suture removal Procedures Procedure Narrative LACERATION LOCATION: Molar left wrist LENGTH: 3 cm NUMBER OF STITCHES/CRISSY: 1 vertical mattress, 6 interrupted horizontal mattress REPAIR: The area of the laceration was prepped with Betadine and sterilely draped. The laceration was infiltrated with 4 mL was 1% lidocaine with epi.. The wound was copiously irrigated and explored without evidence of foreign body , tendon injury or neurovascular injury. The wound was closed using 5-0 Prolene. This was a single layer repair. A sterile dressing was applied. The patient was advised to keep the dressing clean and dry. Patient tolerated the procedure well. Diagnosis Primary Impression: Laceration of left wrist without complication Qualified Code: S61.512A - Laceration of left wrist without complication, initial encounter Patient Instructions: General Instructions, Laceration (ED) Departure Forms: Work Release Enter return to work date: Jun 26, 2017 Special Instructions: Patient needs to keep the left wrist clean and dry for the next 7 days. Left wrist cannot be submerged underwater. Additional Instructions: Laceration is repaired. Dressing should remain in place for 24 hours. Wound care as directed after that. Sutures should remain in place for 7 days. Patient is given Keflex 500 mg 3 times a day 7 days as well. Work note is given. Patient is to follow-up in 7 days for a wound check and suture removal Med/Other Pt SpecificInfo: Prescription(s) given, Wound Care Scripts Cephalexin 500 Mg Foy529 Mg PO Q8H #21 CAP Prov:Lilia Wolfe MD 06/24/17 Disposition: 01 DISCHARGE HOME Condition: Stable Ronn Arguelles Jun 24, 2017 17:11
== END 2017-06-24 17:18 | disposition home or self-care (01) ==
LOC: NEPK 16:01
DX: S61.512A Laceration without foreign body of left wrist, initial encounter (principal); Z86.69 Personal history of other diseases of the nervous system and sense organs; Z86.2 Personal history of diseases of the blood and blood-forming organs and certain disorders involving the immune mechanism; W26.0XXA Contact with knife, initial encounter; Y93.G3 Activity, cooking and baking
CPT/HCPCS: 12002